=== PATIENT | female | born 1990 | race Asian ===

== ENCOUNTER 2021-12-04 13:29 | Emergency (ER) | payer OTHER ==
[~2021-12-04] VITALS: Ht 175.3 cm; Wt 122.5 kg
[2021-12-04 13:35] VITALS: TEMP 97.8
[2021-12-04 14:09] VITALS: BP 124/78
== END 2021-12-04 14:11 | disposition home or self-care (01) ==
LOC: ED 13:29
DX: R07.89 Other chest pain (principal)
CPT/HCPCS: 93005; 99282

== ENCOUNTER 2021-12-05 11:17 | Outpatient (CLI) | payer OTHER | END 2021-12-05 19:36 | disposition home or self-care (01) | LOC: US 11:17 | PROVIDERS: ATTEND Nurse Practitioner Primary Care | DX: M79.604 Pain in right leg (principal); M79.605 Pain in left leg; M54.59 Other low back pain ==

== ENCOUNTER 2021-12-17 16:49 | Outpatient (CLI) | payer OTHER | END 2021-12-17 19:02 | disposition home or self-care (01) | LOC: RAD 16:49 | PROVIDERS: ATTEND Internal Medicine | DX: R07.9 Chest pain, unspecified (principal) ==

== ENCOUNTER 2021-12-18 10:06 | Outpatient (CLI) | payer BC, OTHER ==
[2021-12-18 10:53] LABS: PLATELET COUNT 373 K/uL (152-353)
== END 2021-12-18 20:07 | disposition home or self-care (01) ==
LOC: LABW 10:06
PROVIDERS: ATTEND Internal Medicine
DX: D64.9 Anemia, unspecified (principal); R07.9 Chest pain, unspecified; E66.9 Obesity, unspecified
CPT/HCPCS: 36415; 80061; 82607; 82728; 82746; 83540; 83550; 85027; 85379

== ENCOUNTER 2021-12-23 16:36 | Outpatient (CLI) | payer OTHER | END 2021-12-23 19:18 | disposition home or self-care (01) | LOC: CT 16:36 → RAD 16:36 | PROVIDERS: ATTEND Internal Medicine | DX: R79.89 Other specified abnormal findings of blood chemistry (principal) | CPT/HCPCS: Q9963 ==

== ENCOUNTER 2022-02-03 11:00 | Outpatient (CLI) | payer OTHER | END 2022-02-03 19:02 | disposition home or self-care (01) | LOC: RESP 11:00 | PROVIDERS: ATTEND Specialist | DX: R07.9 Chest pain, unspecified (principal) ==

== ENCOUNTER 2022-11-02 16:31 | Outpatient (CLI) | payer OTHER | END 2022-11-02 19:12 | disposition home or self-care (01) | LOC: RAD 16:31 | PROVIDERS: ATTEND Internal Medicine | DX: R07.89 Other chest pain (principal) ==